=== PATIENT | female | born 1965 | race Caucasian/White ===

== ENCOUNTER 2016-09-25 08:51 | Observation (INO) | payer OTHER ==
[2016-09-25] VITALS (12 sets, daily range): BP systolic 106–145; BP diastolic 45–88; PULSE 47–63; RESP 16–20; TEMP 97.7–98.3; O2SAT 93–100
[~2016-09-25] VITALS: Ht 177.8 cm; Wt 81.8 kg
[2016-09-25] MEDS ORDERED: CELE10TA PO (09:15)
[2016-09-25 09:41] LABS: AUTOMATED NEUTROPHIL # 4.6 TH/MM3 (1.8-7.7); BASOPHIL # 0.1 TH/MM3 (0-0.2); BASOPHIL % 1.3 % (0.0-2.0); EOSINOPHIL # 0.2 TH/MM3 (0-0.4); EOSINOPHIL % 2.8 % (0.0-4.0); HEMATOCRIT 34.3 % (35.0-46.0); LYMPH % 20.4 % (9.0-44.0); LYMPHOCYTE # 1.4 TH/MM3 (1.0-4.8); MEAN CELL VOLUME 72.9 FL (80.0-100.0); MEAN CORPUSCULAR HGB CONC 31.6 % (32.0-36.0); MONO % 10.6 % (0.0-8.0); NEUT % 64.9 % (16.0-70.0); PLATELET COUNT 308 TH/MM3 (150-450); RED CELL DISTRIBUTION WIDTH 17.9 % (11.6-17.2); WHITE BLOOD COUNT 7.1 TH/MM3 (4.0-11.0)
[2016-09-25 09:42] LABS: HEMO FLAGS AUTO DIFF
[2016-09-25] MEDS: SODIUM CHLOR 0.9% 1000 ML INJ 1,000 ML IV SCH ×2 (09:45→16:26)
[2016-09-25] MEDS ORDERED: ONDANSETRON HCL 4 MG/2 ML VIAL IV SCH (09:45)
[2016-09-25] MEDS ORDERED: DIAZEPAM 10 MG TAB PO SCH (09:45)
[2016-09-25] MEDS ORDERED: ceFAZolin 2 GM PREMIX 50 ML IV SCH (09:45)
[2016-09-25] MEDS ORDERED: KETOROLAC TROMETHAMINE 30 MG/ML (IVP) VIAL IVP SCH (09:45)
[2016-09-25 09:50] LABS: APTT (PATIENT) 24.6 SEC (24.3-30.1); PROTHROMBIN TIME - PATIENT 10.6 SEC (9.8-11.6)
[2016-09-25 10:00] LABS: BICARBONATE 28.9 MEQ/L (21.0-32.0); POTASSIUM 3.5 MEQ/L (3.5-5.1)
[2016-09-25 10:24] LABS: ACANTHOCYTES OCC (NORMAL)
[2016-09-25 10:25] LABS: OVALOCYTES 1+ (NORMAL); PLATELET ESTIMATE SMEAR NORMAL (NORMAL); PLATELET MORPHOLOGY NORMAL (NORMAL); SCAN/DIFF AUTO DIFF CONFIRMED
[2016-09-25] MEDS ORDERED: MIDAZOLAM HCL 5 MG/5 ML VIAL ONE (10:27)
[2016-09-25] MEDS ORDERED: fentaNYL CITRATE 250 MCG/5 ML AMP ONE (10:27)
[2016-09-25] MEDS ORDERED: NALOXONE HCL 0.4 MG/ML AMP IV PRN (11:45)
[2016-09-25] MEDS ORDERED: ACETAMINOPHEN 325 MG TAB PO PRN (11:45)
[2016-09-25] MEDS ORDERED: diphenhydrAMINE HCL 50 MG/ML VIAL IV PRN (11:45)
--- NOTE | 2016-09-25 11:48 | PD.RAD ---
Post Procedure Progress Note Pre Procedure Diagnosis: (1) Menorrhagia (2) Uterine fibroid Post Procedure Diagnosis: (1) Menorrhagia (2) Uterine fibroid Procedure Date: Sep 25, 2016 Supervising Radiologist: Maximiliano Alonzo JR Proceduralist/Assist: Silvia Landa, RT(R)(CV), Magalys Marlow RT(R)() Anesthesia: Conscious Sedation Plan of Activity Patient to Unit: ROPU Patient Condition: Good See PACS Report for procedural detail/treatment Vascular-Arterial Procedure Procedure 1 Procedure(s): Embolization Access Access Site(s): Right Femoral Artery Findings: Successful [place]. 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 Will turn off BOREMATIC MACHINE OPERATOR in am. Convert to oral pain meds then. If doing well, home tomorrow afternoon Jr. Clinton,Maximiliano Aguilar MD Sep 25, 2016 11:48
[2016-09-25] MEDS ORDERED: IODIXANOL 320 MG/ML 50 ML VIAL (for RAD SPEC) I-ARTERIAL ONE (12:00)
[2016-09-25] MEDS: HYDROmorphone HCL PCA 6 MG/30 ML IV SCH ×2 (12:21→16:46)
--- NOTE | 2016-09-25 12:51 | HHI.HP ---
HPI Service [facility] Hospitalists Primary Care Physician Mackenzie Cullen Admission Diagnosis Chief Complaint: FIBROID BLEEDING Travel History International Travel<30 Days: No Contact w/Intl Traveler <30 Da: No Traveled to Known Affected Are: No History of Present Illness Pt is 51 yo with uterine fibroids and bleeding. Sent to IR for uterine artery embolization. Pt seen post procedure and in alot of pain. 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 present and updated. Pt says alot of pressure over lower abdomen. no n/v now. Review of Systems Other fibroid bleeding. Past Family Social History Past Medical History depression. cervical/neck procedure. uterine fibroids/bleeding. Reported Medications Reported Meds & Active Scripts Active Reported Celexa (Citalopram Hydrobromide) 10 Mg Tab 10 Mg PO DAILY Allergies: Coded Allergies: No Known Allergies (Unverified , 09/25/16) Family History nc Social History quit tob 17yrs ago social etoh. Physical Exam Vital Signs lying in bed oriented/following commands heart reg lung cta abd bs ext no edema Vital Signs Date Time Temp Pulse Resp B/P Pulse Ox O2 Delivery O2 Flow Rate FiO2 09/25/16 12:30 50 18 129/85 100 09/25/16 12:21 16 09/25/16 12:15 47 16 124/61 100 09/25/16 12:00 97.7 52 16 133/69 100 09/25/16 09:17 100 Room Air 09/25/16 09:08 98.3 59 20 139/88 100 Laboratory Laboratory Tests Test 09/25/16 09:15 White Blood Count 7.1 Red Blood Count 4.70 Hemoglobin 10.8 Hematocrit 34.3 Mean Corpuscular Volume 72.9 Mean Corpuscular Hemoglobin 23.0 Mean Corpuscular Hemoglobin 31.6 Concent Red Cell Distribution Width 17.9 Platelet Count 308 Mean Platelet Volume 9.0 Neutrophils (%) (Auto) 64.9 Lymphocytes (%) (Auto) 20.4 Monocytes (%) (Auto) 10.6 Eosinophils (%) (Auto) 2.8 Basophils (%) (Auto) 1.3 Neutrophils # (Auto) 4.6 Lymphocytes # (Auto) 1.4 Monocytes # (Auto) 0.8 Eosinophils # (Auto) 0.2 Basophils # (Auto) 0.1 CBC Comment AUTO DIFF Differential Comment AUTO DIFF CONFIRMED Platelet Estimate NORMAL Platelet Morphology Comment NORMAL Ovalocytes 1+ Acanthocytes OCC Prothrombin Time 10.6 Prothromb Time International 1.0 Ratio Activated Partial 24.6 Thromboplast Time Sodium Level 139 Potassium Level 3.5 Chloride Level 107 Carbon Dioxide Level 28.9 Anion Gap 3 Blood Urea Nitrogen 9 Creatinine 0.78 Estimat Glomerular Filtration 78 Rate Random Glucose 85 Calcium Level 8.8 Result Diagram: 09/25/1691409/25/16914 Assessment and Plan Problem List: (1) Status post embolization of uterine artery Status: Acute Plan: Uterine artery embolization by IR for Fibroids/bleeding. 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 dvt prophylaxis. (2) Uterine fibroid Status: Acute Plan: see above Delgado So MD Sep 25, 2016 12:51
[2016-09-25] MEDS ORDERED: PILL SPLITTER OTHER PRN (13:00)
--- NOTE | 2016-09-25 13:04 | RADRPT ---
EXAM DATE/TIME: 09/25/2016 10:04 [place] COMPARISON: No previous studies available for comparison. INDICATIONS : Menorrhagia.History of fibroids. See full consultation by Dr. Valadez. MEDICAL HISTORY : 1. Fibroids 2. Depression 3. Diverticulitis SURGICAL HISTORY : 1. Tubal ligation 1999 ENCOUNTER: Initial ACUITY: > 1 year PAIN SCORE: 0/10 FLUORO TIME: 12.1 minutes ACCESS SITE: Right Femoral artery SEDATION TIME: 60 minutes CONTRAST: 1.) 85 cc Visipaque (iodixanol) MEDICATION(S): 1.) 3 mg midazolam (Versed) IV 2.) 250 mcg fentanyl (Sublimaze) IV Prophylactic antibiotics were administered with appropriate pre-procedure timing. DEVICE(S): 1.) Bilateral uterine artery 300 - 500 PVA PROCEDURE : 1. Ultrasound-guided puncture of the access site. 2. Conscious sedation with continuous EKG and Oximetry monitoring. 3. Angiography of the left uterine artery 4. Angiography of the right uterine artery 5. Embolization of the left uterine artery 6. Embolization of the right uterine artery The risks, benefits and alternatives to the procedure were explained and verbal and written consent w as obtained. The risks included, but were not limited to, those of induced menopause, infection, blee ding, and possible need for hysterectomy. The site was prepped in sterile fashion. Full analytical laboratory technician nique was used, including cap, mask, sterile gloves and gown and a large sterile sheet. Hand hygiene and 2% chlorhexidine and/or betadine/alcohol prep was utilized per protocol for cutaneous antisepsis . The skin and subcutaneous tissues were infiltrated with local anesthetic solution. With ultrasound and fluoroscopic guidance the right common femoral artery was punctured and a vascula r sheath was placed. An Omni flush catheter was passed into the lower abdominal aorta and a pelvic angiogram performed. Th ernesto diagnostic images show patent pelvic vasculature and inflow. Uterine arteries are engorged. The c ontralateral uterine artery was then selected and super selective angiography highlight the anatomy. Multiple uterine fibroids are observed with a dominant fibroid measuring approximately 8-9 cm within the midline. Embolization was performed utilizing 300-500 m PVA particles. A total of one vial was u tilized. The followup angiogram shows very slow antegrade flow remaining within the uterine artery. A ttention was then turned to the ipsilateral uterine artery. This was selected and angiography utilize d to highlight the anatomy. PVA embolization was performed from this level as well. One full vial was utilized. Pat-slow antegrade flow within the uterine artery remains. An Omni flush catheter was pos itioned in the lower lumbar aorta and repeat pelvic angiography performed which shows persistent ante grade flow through the inflow vessels. No significant opacification of the vessels supplying the uter ine fibroids observed. The puncture site was closed with manual pressure and hemostasis was obtained. The patient tolerated the procedure well and there were no complications. Conscious sedation was performed with the prescribed dosages and duration as above. EKG and oximetry remained stable throughout the procedure. CONCLUSION: Successful bilateral uterine artery embolization as detailed above. Maximiliano Alonzo Jr., MD on September 25, 2016 at 12:56 Board Certified Radiologist. This report was verified electronically.
[2016-09-25] MEDS: ONDANSETRON HCL 4 MG/2 ML VIAL IV PRN ×2 (13:55→19:32)
[2016-09-25] MEDS: PCA - TOTAL MG DILAUDID DELIVERED PER SHIFT OTHER SCH ×2 (14:00→22:00)
[2016-09-25] MEDS: LEVOFLOXACIN 500 MG TAB PO SCH (15:00)
[2016-09-25] MEDS ORDERED: LEVOFLOXACIN 500 MG PREMIX INJ 100 ML IV ONE (15:02)
[2016-09-25] MEDS: KETOROLAC TROMETHAMINE 10 MG TAB PO SCH ×2 (16:00→22:00)
[2016-09-26] VITALS: BP 110/60; PULSE 60; RESP 20; TEMP 97.4; O2SAT 96
[2016-09-26] MEDS: ONDANSETRON HCL 4 MG/2 ML VIAL IV PRN ×2 (01:27→11:31)
[2016-09-26] MEDS: KETOROLAC TROMETHAMINE 10 MG TAB PO SCH ×4 (03:27→11:19)
[2016-09-26 04:00] VITALS: BP 118/68; PULSE 66; RESP 18; TEMP 98; O2SAT 97
[2016-09-26 04:22] VITALS: RESP 18
[2016-09-26] MEDS: PCA - TOTAL MG DILAUDID DELIVERED PER SHIFT OTHER SCH (06:00)
[2016-09-26] MEDS: SODIUM CHLOR 0.9% 1000 ML INJ 1,000 ML IV SCH (06:11)
[2016-09-26 08:00] VITALS: BP 106/65; PULSE 78; RESP 17; TEMP 98.5; O2SAT 97
[2016-09-26] MEDS ORDERED: CITALOPRAM HYDROBROMIDE 20 MG TAB PO SCH (09:00)
[2016-09-26] MEDS ORDERED: IBUPROFEN 800 MG TAB PO PRN (09:45)
--- NOTE | 2016-09-26 09:59 | HHI.PR ---
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 Pt was started on Toradol and Motrin Objective Vitals Vital Signs Date Time Temp Pulse Resp B/P Pulse Ox O2 Delivery O2 Flow Rate FiO2 09/26/16 08:00 98.5 78 17 106/65 97 09/26/16 06:00 18 09/26/16 04:22 18 09/26/16 04:00 98.0 66 18 118/68 97 09/26/16 00:00 97.4 60 20 110/60 96 09/25/16 22:00 18 09/25/16 20:00 97.8 56 18 106/53 93 09/25/16 19:10 18 09/25/16 16:00 97.8 63 17 115/78 95 09/25/16 14:45 58 16 112/45 94 09/25/16 14:15 57 16 123/47 97 09/25/16 13:45 56 16 113/70 94 09/25/16 13:15 50 19 139/64 99 09/25/16 12:45 51 18 145/75 100 09/25/16 12:30 50 18 129/85 100 09/25/16 12:21 16 09/25/16 12:15 47 16 124/61 100 09/25/16 12:00 97.7 52 16 133/69 100 09/25/16 09/25/16 09/26/16 15:00 23:00 07:00 Intake Total 428 ml 640 ml Output Total 0 ml 350 ml Balance 428 ml 290 ml Intake Oral 220 ml 240 ml IV Total 208 ml 400 ml Output Urine Total 0 ml 350 ml # Bowel Movements 0 0 Result Diagram: 09/25/1615 09/25/1615 Other Results Laboratory Tests Test 09/25/16 09:15 White Blood Count 7.1 TH/MM3 Red Blood Count 4.70 MIL/MM3 Hemoglobin 10.8 GM/DL Hematocrit 34.3 % Mean Corpuscular Volume 72.9 FL Mean Corpuscular Hemoglobin 23.0 PG Mean Corpuscular Hemoglobin 31.6 % Concent Red Cell Distribution Width 17.9 % Platelet Count 308 TH/MM3 Mean Platelet Volume 9.0 FL Neutrophils (%) (Auto) 64.9 % Lymphocytes (%) (Auto) 20.4 % Monocytes (%) (Auto) 10.6 % Eosinophils (%) (Auto) 2.8 % Basophils (%) (Auto) 1.3 % Neutrophils # (Auto) 4.6 TH/MM3 Lymphocytes # (Auto) 1.4 TH/MM3 Monocytes # (Auto) 0.8 TH/MM3 Eosinophils # (Auto) 0.2 TH/MM3 Basophils # (Auto) 0.1 TH/MM3 CBC Comment AUTO DIFF Differential Comment AUTO DIFF CONFIRMED Platelet Estimate NORMAL Platelet Morphology Comment NORMAL Ovalocytes 1+ Acanthocytes OCC Prothrombin Time 10.6 SEC Prothromb Time International 1.0 RATIO Ratio Activated Partial 24.6 SEC Thromboplast Time Sodium Level 139 MEQ/L Potassium Level 3.5 MEQ/L Chloride Level 107 MEQ/L Carbon Dioxide Level 28.9 MEQ/L Anion Gap 3 MEQ/L Blood Urea Nitrogen 9 MG/DL Creatinine 0.78 MG/DL Estimat Glomerular Filtration 78 ML/MIN Rate Random Glucose 85 MG/DL Calcium Level 8.8 MG/DL Imaging Last Impressions Angiography 09/25/16 1155 Signed Impressions: Service Date/Time: Sunday, September 25, 2016 10:04 - CONCLUSION: Successful bilateral uterine artery embolization as detailed above. 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 (2) Uterine fibroid Status: Acute Plan: - See above Assessment and Plan Patient examined. Assessment and plan formulated with Riddhi Morton PA-C. I agree with the above. looks comfortable. d/c later today if tolerating diet and pain controlled. Riddhi Morton Sep 26, 2016 09:59 Delgado So MD Sep 26, 2016 10:19
[2016-09-26] MEDS: LEVOFLOXACIN 500 MG TAB PO SCH (11:30)
[2016-09-26 12:00] VITALS: BP 122/70; PULSE 78; RESP 17; TEMP 97.7; O2SAT 99
[2016-09-26] MEDS ORDERED: ACETAMINOPHEN/HYDROcodone 325 MG/5 MG TAB PO PRN ×2 (12:45)
[2016-09-26] MEDS ORDERED: ONDANSETRON HCL 4 MG/2 ML VIAL IV PRN (15:45)
[2016-09-26 16:00] VITALS: BP 126/75; PULSE 85; RESP 17; TEMP 96.9; O2SAT 100
[2016-09-26] MEDS ORDERED: HYDR-3516 PO (16:04)
--- NOTE | 2016-09-26 16:04 | HHI.DCPOC ---
Discharge Care Plan Diagnosis: (1) Uterine fibroid (2) Status post embolization of uterine artery Goals to Promote Your Health * To prevent worsening of your condition and complications * To maintain your health at the optimal level Directions to Meet Your Goals Take your medications as prescribed Follow your dietary instruction Follow activity as directed Keep your appointments as scheduled Take your immunizations and boosters as scheduled If your symptoms worsen call your PCP, if no PCP go to Urgent Care Center or Emergency Room Smoking is Dangerous to Your Health. Avoid second hand smoke Call the 24-hour hour crisis hotline for domestic abuse at Delgado So MD Sep 26, 2016 16:04
== END 2016-09-26 16:58 | disposition home or self-care (01) ==
LOC: HROP 08:51 → HRIP 08:55 → N07B 10:00 → HROP 15:43
PROVIDERS: ADMIT Hospitalist; ATTEND Hospitalist
DX: D25.9 Leiomyoma of uterus, unspecified (principal); N92.0 Excessive and frequent menstruation with regular cycle
CPT/HCPCS: 36247; 37243; 75736; 76937; 80048; 85025; 85610; 85730; 99152; 99153; C1769; C1887; C1894; G0378; J0690; J1170; J1885; J1956; J2250; J2405; J3010; J7030; Q9967

== ENCOUNTER 2016-10-04 14:36 | Day surgery (SDC) | payer OTHER ==
[~2016-10-04 14:36] MED LIST: CELE10TA PO; HYDR-3516 PO
[2016-10-04 14:50] VITALS: BP 115/81; PULSE 71; RESP 20; TEMP 99; O2SAT 94
== END 2016-10-04 15:00 | disposition home or self-care (01) ==
LOC: HROP 14:36 → HRIP 14:37 → HROP 15:00
PROVIDERS: ATTEND Radiology Body Imaging
DX: D25.9 Leiomyoma of uterus, unspecified (principal)